=== PATIENT | male | born 1990 ===

== ENCOUNTER 2016-08-13 09:40 | Outpatient (CLI) | payer OTHER ==
--- NOTE | 2016-08-13 13:04 | Diagnostic Imaging Report ---
Indications: Left-sided scrotal pain for one week Technique: Trans-scrotal real-time grayscale and duplex Doppler imaging was performed Findings: Comparison: None Right testis 4 x 2.4 x 3.7 cm. Homogeneous echotexture except for a few punctate echogenic non-shadowing foci.. Right epididymis normal in size and echotexture without focal abnormality. Both demonstrate normal blood flow on duplex Doppler imaging. Small amount of adjacent fluid. No varicocele. Overlying scrotal wall unremarkable.. Left testis 3.8 x 2.1 x 3.2 cm. Homogeneous echotexture except for a few punctate echogenic non-shadowing foci. Left epididymis normal in size and echotexture except for a few small circumscribed anechoic foci in its head. Both demonstrate normal blood flow on duplex Doppler imaging. Small amount of adjacent fluid. Prominent varicocele. Overlying scrotal wall unremarkable. IMPRESSION: Left varicocele Left epididymal head small cysts Minimal bilateral testicular microlithiasis, of doubtful clinical significance Minimal bilateral hydroceles
== END 2016-08-13 10:10 | disposition home or self-care (01) ==
LOC: ULS 09:40
DX: N50.82 Scrotal pain (principal); I86.1 Scrotal varices; N48.89 Other specified disorders of penis; N43.3 Hydrocele, unspecified
CPT/HCPCS: 76870